=== PATIENT | male | born 1995 | race Caucasian/White ===

== ENCOUNTER 2019-08-14 20:10 | Emergency (ER) | payer OTHER ==
[~2019-08-14] VITALS: Ht 172.7 cm; Wt 71.3 kg
[2019-08-14 20:13] VITALS: Ht 172.7 cm; Wt 71.3 kg
[2019-08-14 23:43] VITALS: BP 123/69
== END 2019-08-14 23:43 | disposition home or self-care (01) ==
LOC: ED 20:10
DX: S62.631A Displaced fracture of distal phalanx of left index finger, initial encounter for closed fracture (principal); S61.311A Laceration without foreign body of left index finger with damage to nail, initial encounter; W23.0XXA Caught, crushed, jammed, or pinched between moving objects, initial encounter; Y93.89 Activity, other specified; Y92.810 Car as the place of occurrence of the external cause; Y99.8 Other external cause status
CPT/HCPCS: 90715; A4570; J2001

== ENCOUNTER 2019-08-16 20:09 | Emergency (ER) | payer OTHER ==
[~2019-08-16] VITALS: Ht 172.7 cm; Wt 63.0 kg
[2019-08-16 20:15] VITALS: Ht 172.7 cm; Wt 63.0 kg
[2019-08-16 21:34] VITALS: BP 131/79
== END 2019-08-16 21:34 | disposition home or self-care (01) ==
LOC: ED 20:09
DX: S61.211D Laceration without foreign body of left index finger without damage to nail, subsequent encounter (principal); X58.XXXD Exposure to other specified factors, subsequent encounter
CPT/HCPCS: A4570

== ENCOUNTER 2019-08-21 12:15 | Emergency (ER) | payer OTHER ==
[~2019-08-21] VITALS: Ht 165.1 cm; Wt 61.2 kg
[2019-08-21 12:22] VITALS: Ht 165.1 cm; Wt 61.2 kg
[2019-08-21 14:12] VITALS: BP 131/71
== END 2019-08-21 14:12 | disposition home or self-care (01) ==
LOC: ED 12:15
DX: S62.631D Displaced fracture of distal phalanx of left index finger, subsequent encounter for fracture with routine healing (principal); Z48.01 Encounter for change or removal of surgical wound dressing; X58.XXXD Exposure to other specified factors, subsequent encounter
CPT/HCPCS: A4570